=== PATIENT | female | born 1965 | race Asian ===

== ENCOUNTER 2017-09-28 10:25 | Emergency (ER) | payer OTHER ==
[2017-09-28] MEDS: IV NORMAL SALINE 1000ML BAG 1,000 ML IV (11:14)
[2017-09-28 11:15] LABS: ADD MAN DIFF? NO; BILIRUBIN,URINE NEGATIVE (NEG); CLARITY,URINE CLEAR; GLUCOSE,URINE NEGATIVE (NEG); NITRITE,URINE NEGATIVE (NEG); PROTEIN,URINE NEGATIVE (NEG-TRACE); UROBILINOGEN,URINE 0.2 mg/dL (0.2 mg/dL)
[2017-09-28] MEDS: diphenhydrAMINE 50 MG/ML VIAL IVP (11:15)
[2017-09-28] MEDS: PROCHLORPERAZINE 10 MG/2 ML VIAL. IV (11:16)
[2017-09-28 11:17] LABS: BASO % 1 % (0-3); EOS # 0.1 x10^3/uL (0.0-0.7); EOS % 2 % (0-3); HEMATOCRIT 40.2 % (36.0-47.0); HEMOGLOBIN 13.8 g/dL (12.0-15.5); LYMPH # 2.5 x10^3/uL (1.0-4.8); LYMPH % 36 % (24-48); MEAN CORPUSCULAR HEMOGLOBIN 31 pg (25-35); MEAN CORPUSCULAR HGB CONC 34 g/dL (31-37); MEAN CORPUSCULAR VOLUME 91 fL (79-100); MONO # 0.5 x10^3/uL (0.0-1.1); MONO % 7 % (0-9); NEUT # 3.8 x10^3uL (1.8-7.7); NEUT % 55 % (31-73); PLATELET COUNT 323 x10^3/uL (140-400); RED CELL DISTRIBUTION WIDTH 13.1 % (11.5-14.5); WHITE BLOOD COUNT 6.9 x10^3/uL (4.0-11.0)
[2017-09-28 11:21] LABS: AMPHETAMINE/METHAMPHETAMINE NEG (NEG); BARBITURATES NEG (NEG); BENZODIAZEPINES NEG (NEG); CANNABINOIDS NEG (NEG); COCAINE NEG (NEG); ETHANOL, URINE NEG (NEG); METHADONE NEG (NEG); OPIATES NEG (NEG); PHENCYCLIDINE NEG (NEG)
[2017-09-28 11:25] LABS: ANION GAP 8 (6-14); BLOOD UREA NITROGEN 9 mg/dL (7-20); BUN/CREATININE RATIO 11 (6-20); CARBON DIOXIDE 27 mmol/L (21-32); CHLORIDE 106 mmol/L (98-107); CREATININE 0.8 mg/dL (0.6-1.0); GFR 75.3; GLUCOSE 101 mg/dL (70-99); POTASSIUM 3.8 mmol/L (3.5-5.1); SODIUM 141 mmol/L (136-145)
[2017-09-28 11:28] LABS: COLOR,URINE COLORLESS
[2017-09-28 11:30] LABS: BACTERIA,URINE FEW /HPF (0-FEW); RBC,URINE RARE /HPF (0-2); SQUAMOUS EPITHELIAL CELL,UR MOD /LPF
[2017-09-28 11:32] LABS: ALBUMIN 3.5 g/dL (3.4-5.0); ALBUMIN/GLOBULIN RATIO 0.9 (1.0-1.7); ALK PHOS 72 U/L (46-116); ALT (SGPT) 21 U/L (14-59); AST (SGOT) 14 U/L (15-37); LIPASE 78 U/L (73-393); TOTAL BILIRUBIN 1.1 mg/dL (0.2-1.0); TOTAL PROTEIN 7.2 g/dL (6.4-8.2)
[2017-09-28 11:49] LABS: ETHANOL < 10 mg/dL (0-10)
[2017-09-28] MEDS: DEXAMETHASONE SOD PHOS 20 MG/5 ML VIAL. IV (12:14)
[2017-09-28] MEDS: KETOROLAC 30 MG/ML INJ. IV (12:14)
== END 2017-09-28 14:15 | disposition home or self-care (01) ==
LOC: ER 14:15
DX: R51 Headache (principal); N39.0 Urinary tract infection, site not specified; M54.2 Cervicalgia; J45.909 Unspecified asthma, uncomplicated
CPT/HCPCS: 36415; 70450; 80053; 80307; 81001; 83690; 85025; 87086; 96374; 96375; 99285-25; G0480; J0780; J1100; J1200; J1885; J7030

== ENCOUNTER 2019-05-24 13:06 | Emergency (ER) | payer MEDICAID, OTHER ==
[~2019-05-24] VITALS: Ht 157.5 cm; Wt 79.5 kg
[~2019-05-24 13:06] MED LIST: ALBU2.5V8 IH; BENZ1LOZ48 MM; BREO ELLIPTA 11 EACH INH; CYCL10TA2 PO; DOXY100C2 PO; DOXY100T PO; GUAI-297 PO; IPRA3AMP29 NEB; NAPR500T8 PO; PRED-220 PO; PRED20TA PO; PRED5TAB PO; SULF1TAB24 PO
[2019-05-24 14:32] VITALS: BP 122/74
[2019-05-24] MEDS ORDERED: IPRATRPIUM/ALBUTEROL 0.5/2.5MG 3 ML NEBU. NEB ONE (14:45)
[2019-05-24] MEDS ORDERED: predniSONE 10 MG TABLET PO ONE (14:45)
[2019-05-24] MEDS ORDERED: ALBUTEROL SULFATE 2.5 MG/3 ML NEBU. NEB ONE (14:45)
--- NOTE | 2019-05-24 15:03 | PHYS DOC ---
Past Medical History Past Medical History: Asthma (JAN VEGA APRN) Past Surgical History: (JAN VEGA APRN) Smoking Status: Never Smoker Alcohol Use: None Drug Use: None (JAN VEGA APRN) Adult General Chief Complaint Chief Complaint: ASTHMA HPI HPI Patient is a 53 year old female, accompanied by her family, who presents to the emergency department with complaints of shortness of breath, asthma problems, and chest tightness for the last 2-3 days. Patient states that her chest feels tight. She also reports a hoarse voice, nasal congestion, and a bit of a sore throat. She denies any fever, nausea, vomiting, diarrhea, palpitations, syncope, abdominal pain, back pain, earache, body aches, or fatigue. Patient states she has been out of her purple inhaler Advair 250/50 for several days. Patient states she has been taking albuterol nebulizer treatments and using her Pro Air inhaler at home with little relief in her symptoms. She currently rates her pain 8 out of 10 on the pain scale, states pain is in her chest and it feels like tightness. She denies any alleviating or exacerbating factors. (JAN VEGA APRN) Review of Systems Review of Systems All other ROS is negative unless otherwise noted in HPI. (JAN VEGA APRN) Current Medications Current Medications Current Medications Medications (Trade) Dose Ordered Sig/Sofia Start Time Stop Time Status Last Admin Dose Admin Albuterol Sulfate (Ventolin Neb Soln) 2.5 mg 1X ONCE 05/24/19 14:45 05/24/19 14:46 DC 05/24/19 15:15 2.5 MG Albuterol/ Ipratropium (Duoneb) 3 ml 1X ONCE 05/24/19 14:45 05/24/19 14:46 DC 05/24/19 15:15 3 ML Prednisone (Prednisone) 50 mg 1X ONCE 05/24/19 14:45 05/24/19 14:46 DC 05/24/19 14:45 50 MG (FILOMENA JARA DO) Allergies Allergies Allergies Coded Allergies Type Severity Reaction Last Updated Verified No Known Drug Allergies 04/30/15 No (FILOMENA JARA DO) Physical Exam Physical Exam See Above Constitutional: Well developed, well nourished, no acute distress, non-toxic appearance, obese. [] HENT: Normocephalic, atraumatic, bilateral external ears normal, bilateral TMs normal, posterior pharynx normal, oropharynx moist, no oral exudates, nose normal. [] Eyes: PERRLA, EOMI, conjunctiva normal, no discharge. [] Neck: Normal range of motion, no tenderness, supple, no stridor. [] Cardiovascular:Heart rate regular rhythm Lungs & Thorax: Expiratory wheezes throughout all wynn, diminished in bases bilaterally, Respirations even and unlabored, no retractions Skin: Warm, dry, no erythema, no rash. [] Back: No tenderness Extremities: No cyanosis, no clubbing, ROM intact, no edema. [] Neurologic: Alert and oriented X 3, no focal deficits noted. [] Psychologic: Affect normal, judgement normal, mood normal. [] (JAN VEGA APRN) Current Patient Data Vital Signs Vital Signs Date Time Temp Pulse Resp B/P (MAP) Pulse Ox O2 Delivery O2 Flow Rate FiO2 05/24/19 15:20 98 Room Air 05/24/19 14:32 97.8 78 122/74 (90) 97.8 05/24/19 13:18 17 (FILOMENA JARA DO) EKG EKG 1318- SR, normal ECG, NO STEMI, rate [address] Jara[] (JAN VEGA APRN) Radiology/Procedures Radiology/Procedures [] (JAN VEGA APRN) Course & Med Decision Making Course & Med Decision Making Pertinent Labs and Imaging studies reviewed. (See chart for details) Is a 53-year-old female who presented to the emergency department for asthma p roblems. She received a DuoNeb and albuterol treatment and 50 mg of by mouth prednisone in the emergency department. Following these medications patient's lung sounds improved with some rhonchi remaining but no expiratory wheezes. Her EKG was unremarkable. I will refill her Advair inhaler and also refill her albuterol MDI and nebulizer vials. Instructed the patient to follow up with her primary care doctor in the next 1-2 days. Return to the ER symptoms worsen. Patient verbalized an understanding of home care, medications, follow-up, and return to ED instructions and was in agreement with the plan of care. [] (JAN VEGA APRN) Dragon Disclaimer Dragon Disclaimer This electronic medical record was generated, in whole or in part, using a voice recognition dictation system. (JAN VEGA APRN) Departure Departure Impression: Primary Impression: Asthma exacerbation Disposition: HOME, SELF-CARE Condition: STABLE Referrals: NO PCP (PCP) Patient Instructions: Asthma, Adult, [id number] Additional Instructions: Fill prescription(s) and use as directed.. Avoid airway triggers such as smoke, fragrance, dust, and pollen. Follow-up with your primary care doctor in1-2 days, return to the ER if symptoms worsen. Scripts Prednisone (PREDNISONE) 50 Mg Tablet 1 TAB PO DAILY for 4 Days, #4 TAB 0 Refills begin taking tomorrow 05/25/19 Prov: JAN VEGA APRN 05/24/19 Albuterol Sulfate (ALBUTEROL SULFATE NEB SOLN) 2.5 Mg/3 Ml Vial.neb 1 VIAL NEB PRN Q4HRS PRN for WHEEZING for 30 Days, #50 VIAL 1 Refill Prov: JAN VEGA APRN 05/24/19 Albuterol Sulfate (Proair Hfa) 8.5 Gm Hfa.aer.ad 2 PUFF IH PRN Q4-6HRS PRN for wheezing for 21 Days, #1 INHALER 1 Refill Prov: JAN VEGA APRN 05/24/19 Fluticasone/Salmeterol (ADVAIR 250-50 DISKUS) 1 Each Disk.w.dev 1 PUFF IH BID, #1 INHALER 1 Refill Prov: JAN VEGA APRN 05/24/19 Attending Signature Attending Signature I have reviewed the PA/CUT OUT WORKER's note and plan of care. I was available for consultation as needed during the patient's visit in the emergency department. I agree with the clinical impression, plan, and disposition. (FILOMENA JARA DO) Problem Qualifiers Primary Impression: Asthma exacerbation Asthma severity: moderate Asthma persistence: unspecified Qualified Codes: J45.901 - Unspecified asthma with (acute) exacerbation JAN VEGA APRN May 24, 2019 15:03 FILOMENA JARA DO May 24, 2019 21:15
--- NOTE | 2019-05-24 15:20 | EKG ---
[facility] [address] [place] [address] Test Date: 2019-05-24 Test Time: 13:18:41 Pat Name: PAY LAY Department: Room: Gender: F Glove Former: : 1965 Requested By: JAN VEGA Order Number: [id number] Reading MD: Measurements Intervals [place] Rate: 75 P: 66 ND: 160 QRS: 67 QRSD: 82 T: 58 QT: 394 QTc: 443 Interpretive Statements SINUS RHYTHM NORMAL ECG RI6.01 No previous ECG available for comparison
[2019-05-24] MEDS ORDERED: ALBU2.5V8 IH (15:41)
[2019-05-24] MEDS ORDERED: FLUT1DIS3 IH (15:41)
[2019-05-24] MEDS ORDERED: ALBU2.5V5 NEB (15:41)
[2019-05-24] MEDS ORDERED: PRED50TA PO (15:41)
== END 2019-05-24 16:15 | disposition home or self-care (01) ==
LOC: ER 13:06
DX: J45.901 Unspecified asthma with (acute) exacerbation (principal)
CPT/HCPCS: 93005; 94640; 99284; J7512; J7613; J7620